=== PATIENT | female | born 1940 | race Caucasian/White ===

== ENCOUNTER → 2019-07-14 | Outpatient (CLI) | payer OTHER ==
[~2019-07-14] MED LIST: ACET500; CITA20 PO; ESOM20 PO; OXYB5 PO; RANI150
[2019-07-14 20:13] LABS: Free Thyroxine 0.86 ng/dL (0.70-1.60)
[2019-07-14 20:18] LABS: Thyroid Stimulating Hormone 1.49 uIU/mL (0.360-4.800)
== END | disposition home or self-care (01) ==
LOC: LAB 18:32 → LAB SHORT 18:32
PROVIDERS: Nurse Practitioner Family
DX: F33.9 Major depressive disorder, recurrent, unspecified (principal)
CPT/HCPCS: 84439; 84443